=== PATIENT | male | born 1965 | race Caucasian/White ===

== ENCOUNTER 2016-03-22 17:53 | Emergency (ER) | payer OTHER ==
[~2016-03-22] VITALS: Ht 177.8 cm; Wt 72.6 kg
[2016-03-22 20:04] VITALS: BP 131/86
== END 2016-03-22 20:05 | disposition home or self-care (01) ==
LOC: ER 17:53
DX: G44.82 Headache associated with sexual activity (principal); K21.9 Gastro-esophageal reflux disease without esophagitis; Z88.2 Allergy status to sulfonamides